=== PATIENT | female | born 1990 | race Caucasian/White ===

== ENCOUNTER 2016-11-28 15:48 | Emergency (ER) | payer OTHER ==
[~2016-11-28] VITALS: Ht 177.8 cm; Wt 122.7 kg
[~2016-11-28 15:48] MED LIST: ACET50TA PO; ANUS2.5C2 PR; ANUS2.5C2 TOP; COLA50CA3 PO; DOCU10CA PO; LANO30GM TOP; LANOOIN21 TOP; MOM30SS PO; MOTRIN PO; PERC5TAB12 PO; PRENTAB74 PO
[2016-11-28] MEDS ORDERED: CITA20TA4 PO (15:58)
[2016-11-28] MEDS ORDERED: ADACEL/BOOSTRIX VACCINE (DIPHTH/PERTUSS/ACELL/TETANUS)0.5ML SYR (90715) IM ONE (16:30)
[2016-11-28] MEDS ORDERED: NAPROXEN 250 MG TAB PO ONE (16:30)
[2016-11-28] MEDS ORDERED: AUGMENTIN 875 MG TAB PO ONE (16:30)
[2016-11-28] MEDS ORDERED: PERCOCET 5MG/325MG TAB PO ONE (16:30)
[2016-11-28] MEDS ORDERED: LIDOCAINE 1% MDV 20ML VIAL SC ONE (16:30)
[2016-11-28] MEDS ORDERED: LIDOCAINE 4% CREAM 5GM (LMX4) TOP ONE (16:45)
[2016-11-28] MEDS ORDERED: AUGM875T28 PO (17:31)
[2016-11-28] MEDS ORDERED: NAPR500T3 PO (17:31)
[2016-11-28] MEDS ORDERED: OXYC1TAB23 PO (17:31)
[2016-11-28 17:48] VITALS: BP 111/56
--- NOTE | 2016-11-29 07:09 | REP ---
RIGHT HAND FOUR VIEWS: HISTORY: Dog bite. There is no acute fracture or dislocation. The joint spaces are normal in appearance. A defect is present in the soft tissue overlying the second metacarpal. IMPRESSION: There is no acute fracture or dislocation. Signed by Alex Woodson MD 11/29/2016 08:14 A
== END 2016-11-28 17:56 | disposition home or self-care (01) ==
LOC: M ED 15:48
DX: S61.412A Laceration without foreign body of left hand, initial encounter (principal); S61.432A Puncture wound without foreign body of left hand, initial encounter; W54.0XXA Bitten by dog, initial encounter; Y92.099 Unspecified place in other non-institutional residence as the place of occurrence of the external cause; Y93.K3 Activity, grooming and shearing an animal; Y99.9 Unspecified external cause status; D68.0 Von Willebrand disease; Z79.899 Other long term (current) drug therapy

== ENCOUNTER → 2016-11-30 | Outpatient (REF) | payer OTHER ==
[~2016-11-30] MED LIST changes: +AUGM875T28 PO; +CITA20TA4 PO; +NAPR500T3 PO; +OXYC1TAB23 PO
== END ==
LOC: M LAB REF 16:51
PROVIDERS: ATTEND Nurse Practitioner Family
DX: Z13.9 Encounter for screening, unspecified (principal)

== ENCOUNTER 2016-12-01 12:09 | Emergency (ER) | payer OTHER ==
[~2016-12-01] VITALS: Ht 177.8 cm; Wt 121.4 kg
[2016-12-01 12:09] VITALS: BP 139/81
[2016-12-01] MEDS ORDERED: AMPICILLIN SOD/SULBACTAM SOD 3 GM in D5W MINI-BAG PLUS 100 ML IV ONE (13:15)
[2016-12-01 14:08] LABS: BASO % 0.3 % (0.0-1.0); EOS # 0.1 K/mm3 (0.0-0.50); EOS % 0.9 % (0.0-3.0); LARGE UNSTAINED CELL # 0.1 K/mm3 (0.0-0.4); LARGE UNSTAINED CELL % 1.5 % (0.0-4.0); LYMPH # 1.4 K/mm3 (1.5-6.5); LYMPH % 18.6 % (24.0-44.0); MEAN CORPUSCULAR HEMOGLOBIN 25.6 pg (27.0-33.0); MEAN CORPUSCULAR HGB CONC 33.4 g/dl (32.0-36.5); MEAN CORPUSCULAR VOLUME 76.4 fl (80.0-96.0); MONO # 0.3 K/mm3 (0.0-0.8); MONO % 4.3 % (0.0-5.0); NEUTROPHILS # 5.8 K/mm3 (1.8-7.7); NEUTROPHILS % 74.4 % (36.0-66.0); PLATELET COUNT, AUTOMATED 255 k/mm3 (150-450); RED CELL DISTRIBUTION WIDTH 13.7 % (11.5-14.5); WHITE BLOOD COUNT 7.8 K/mm3 (4.0-10.0)
[2016-12-01] MEDS ORDERED: PERCOCET 5MG/325MG TAB PO ONE (14:15)
[2016-12-01 14:32] LABS: ANION GAP 5 MEQ/L (8-16); BLOOD UREA NITROGEN 16 MG/DL (7-18); CALCIUM LEVEL 8.7 MG/DL (8.5-10.1); CARBON DIOXIDE LEVEL 26 MEQ/L (21-32); CHLORIDE LEVEL 108 MEQ/L (98-107); CREATININE FOR GFR 0.71 MG/DL (0.55-1.02); GLOMERULAR FILTRATION RATE > 60.0 (>60); GLUCOSE, FASTING 103 MG/DL (70-105); SODIUM LEVEL 139 MEQ/L (136-145)
[2016-12-01 14:47] LABS: ERYTHROCYTE SEDIMENTATION RATE 46 mm/hr (0-20)
== END 2016-12-01 15:15 | disposition home or self-care (01) ==
LOC: M ED 12:09
DX: S61.452D Open bite of left hand, subsequent encounter (principal); L03.114 Cellulitis of left upper limb; W54.0XXD Bitten by dog, subsequent encounter; Y92.099 Unspecified place in other non-institutional residence as the place of occurrence of the external cause; Y93.K3 Activity, grooming and shearing an animal; Y99.9 Unspecified external cause status; D68.0 Von Willebrand disease; Z82.49 Family history of ischemic heart disease and other diseases of the circulatory system; Z83.49 Family history of other endocrine, nutritional and metabolic diseases; Z79.899 Other long term (current) drug therapy

== ENCOUNTER → 2016-12-02 | Outpatient (REF) | payer OTHER | LOC: M LAB REF 16:52 | PROVIDERS: ATTEND Internal Medicine | DX: L03.114 Cellulitis of left upper limb (principal) ==

== ENCOUNTER → 2017-06-27 | Outpatient (REF) | payer OTHER | LOC: M LAB REF 13:39 | DX: J11.1 Influenza due to unidentified influenza virus with other respiratory manifestations (principal) ==

== ENCOUNTER 2017-07-04 07:18 | Emergency (ER) | payer OTHER ==
[2017-07-04] MEDS: dexameTHASONE 20 MG/5 ML VIAL (J1100) IM (08:28)
== END 2017-07-04 08:43 | disposition home or self-care (01) ==
LOC: M ED 07:18
DX: J02.0 Streptococcal pharyngitis (principal); Z79.899 Other long term (current) drug therapy
CPT/HCPCS: J1100